=== PATIENT | male | born 1945 | race Caucasian/White ===

== ENCOUNTER → 2017-02-25 | Outpatient (CLI) | payer OTHER ==
[~2017-02-25] MED LIST: ALBUTEROL2.5 MG/3 M INH; ARICEPT10 MG PO; CIPRO500 MG PO; FLAGYL500 MG PO; FLOMAX0.4 MG PO; NAMENDA10 MG PO; PROTONIX40 MG PO; ROBAXIN500 MG PO; TYLENOL WITH C1 EAC1 PO; VALIUM 5 MG TAB5 MG PO; ZOLOFT100 MG PO
[2017-02-25 15:13] LABS: HEMOGLOBIN 15.9 gm/dl (14.0-17.5); RED BLOOD COUNT 4.86 M/UL (4.20-5.50); WHITE BLOOD COUNT 9.4 K/UL (4.5-11.0)
[2017-02-25 15:36] LABS: BUN/CREATININE RATIO 9 (0-10)
== END ==
LOC: LAB 14:04
PROVIDERS: Urology
DX: C67.9 Malignant neoplasm of bladder, unspecified (principal)
CPT/HCPCS: 36415; 80048; 80076; 85027; 87086

== ENCOUNTER → 2017-02-28 | Outpatient (CLI) | payer OTHER | LOC: KOH-I 09:15 | DX: C67.9 Malignant neoplasm of bladder, unspecified (principal) | CPT/HCPCS: 74178; Q9962 ==

== ENCOUNTER 2017-04-03 14:34 | Emergency (ER) | payer OTHER ==
[2017-04-03 17:15] LABS: HEMOGLOBIN 15.4 gm/dl (14.0-17.5); RED BLOOD COUNT 4.69 M/UL (4.20-5.50); WHITE BLOOD COUNT 9.7 K/UL (4.5-11.0)
[2017-04-03 17:38] LABS: BUN/CREATININE RATIO 18 (0-10)
== END 2017-04-03 19:35 | disposition home or self-care (01) ==
LOC: ER1 14:34
PROVIDERS: Emergency Medicine
DX: J44.0 Chronic obstructive pulmonary disease with (acute) lower respiratory infection (principal); J18.1 Lobar pneumonia, unspecified organism; I25.10 Atherosclerotic heart disease of native coronary artery without angina pectoris; I25.2 Old myocardial infarction; F17.210 Nicotine dependence, cigarettes, uncomplicated; Z88.5 Allergy status to narcotic agent; Z88.8 Allergy status to other drugs, medicaments and biological substances
CPT/HCPCS: 36415; 71010; 80053; 82550; 82553; 83874; 84484; 85025; 93005; 99285

== ENCOUNTER → 2017-04-23 | Outpatient (CLI) | payer OTHER | LOC: CT 09:30 | DX: R42 Dizziness and giddiness (principal); R06.02 Shortness of breath; G45.9 Transient cerebral ischemic attack, unspecified; R63.4 Abnormal weight loss; R91.8 Other nonspecific abnormal finding of lung field; I65.23 Occlusion and stenosis of bilateral carotid arteries | CPT/HCPCS: 70551; 71260; 93308; 93880; J7050; Q9962 ==

== ENCOUNTER 2017-05-07 12:16 | Observation (INO) | payer OTHER ==
[~2017-05-07] VITALS: Ht 182.9 cm; Wt 63.5 kg
[2017-05-07 14:34] LABS: HEMOGLOBIN 17.2 gm/dl (14.0-17.5); RED BLOOD COUNT 5.19 M/UL (4.20-5.50); WHITE BLOOD COUNT 20.8 K/UL (4.5-11.0)
[2017-05-07 15:08] LABS: BUN/CREATININE RATIO 25 (0-10)
[2017-05-07] MEDS ORDERED: TYLENOL WITH C1 EAC1 PO (21:55)
[2017-05-07] MEDS ORDERED: VALIUM 5 MG TAB5 MG PO (21:55)
[2017-05-07] MEDS ORDERED: ROBAXIN500 MG PO (21:56)
[2017-05-07] MEDS ORDERED: ALBUTEROL2.5 MG/3 M INH (21:56)
[2017-05-07] MEDS ORDERED: NAMENDA10 MG PO (21:57)
[2017-05-07] MEDS ORDERED: ARICEPT10 MG PO (21:57)
[2017-05-07] MEDS ORDERED: FLOMAX0.4 MG PO (21:58)
[2017-05-07] MEDS ORDERED: ZOLOFT100 MG PO (21:58)
[2017-05-08 05:41] LABS: RED BLOOD COUNT 4.39 M/UL (4.20-5.50); WHITE BLOOD COUNT 10.5 K/UL (4.5-11.0)
[2017-05-08 05:42] LABS: HEMOGLOBIN 14.3 gm/dl (14.0-17.5)
[2017-05-08 05:59] LABS: BUN/CREATININE RATIO 18 (0-10)
[2017-05-09 05:23] LABS: HEMOGLOBIN 13.7 gm/dl (14.0-17.5); RED BLOOD COUNT 4.23 M/UL (4.20-5.50)
[2017-05-09 05:25] LABS: WHITE BLOOD COUNT 7.8 K/UL (4.5-11.0)
[2017-05-09 05:47] LABS: BUN/CREATININE RATIO 17 (0-10)
[2017-05-09] MEDS ORDERED: FLAGYL500 MG PO (18:42)
[2017-05-09] MEDS ORDERED: PROTONIX40 MG PO (18:42)
[2017-05-09] MEDS ORDERED: CIPRO500 MG PO (18:43)
== END 2017-05-09 19:30 | disposition home or self-care (01) ==
LOC: ER1 12:16 → M/S 17:36 → ZEROF 17:36 → M/S 20:40
PROVIDERS: Student in an Organized Health Care Education/Training Program; ADMIT Family Medicine
DX: R10.9 Unspecified abdominal pain (principal); D72.829 Elevated white blood cell count, unspecified; M48.06 Spinal stenosis, lumbar region; J44.9 Chronic obstructive pulmonary disease, unspecified; F03.90 Unspecified dementia, unspecified severity, without behavioral disturbance, psychotic disturbance, mood disturbance, and anxiety; F41.9 Anxiety disorder, unspecified; G89.29 Other chronic pain; M54.2 Cervicalgia; F17.210 Nicotine dependence, cigarettes, uncomplicated; Z85.51 Personal history of malignant neoplasm of bladder; Z79.899 Other long term (current) drug therapy; Z98.890 Other specified postprocedural states
CPT/HCPCS: 36415; 71020; 80053; 80307; 82550; 82553; 83605; 83690; 83874; 84132; 84484; 85025; 85027; 85610; 85730; 93005; 93308; 94640; 94664; 96374; 96375; 96376; 99285; C9113; G0378; J2270; J2405; J7030; J7050; Q0162; Q9962